=== PATIENT | male | born 1980 | race Caucasian/White ===

== ENCOUNTER 2016-09-07 10:13 | Emergency (ER) | payer OTHER ==
[2016-09-07 10:21] VITALS: TEMP 98.2; BMI 44.3
[2016-09-07] MEDS ORDERED: SODIUM CHLORIDE 1,000 ML IV STA ×2 (11:14→13:21)
--- NOTE | 2016-09-07 11:39 | PDOC ---
History of Present Illness - General History Source: Patient Exam Limitations: No Limitations - History of Present Illness Initial Comments: 09/07/16 11:38 The patient is a 35-year-old man with a significant past medical history of hypertension, hypercholesterolemia, diabetes mellitus, GOUT, anxiety and sleep apnea who presents to the emergency department via walk-in for further evaluation of a possible hyperglycemia. Patient states that he has felt tingling on his bilateral hands with associated headaches, urinary frequency and increased thirst for the past 2 days. He reports not checking his sugars at home, as his machine broke. He also reports getting over a cold recently- with symptoms of fevers, chills, nausea, vomiting and an episode of hematuria. He also reports having chest pain with shortness of breath and has not undergone a stress test due to scheduling difficulty. No fever, chills., generalized weakness, diaphoresis. No lightheadedness, dizziness, palpitations, loss of consciousness. No abdominal pain, nausea, vomiting, diarrhea. Allergies: No Known Drug Allergies Past Surgical History: Appendectomy Social History: Current every day smoker. Social EtOH use and no recreational drug use. Primary Care Physician: Dr. Sai Delgadillo <Viviana Eng - Last Filed: 09/07/16 14:22> - General History Source: Patient Exam Limitations: No Limitations <Yulia Martinez - Last Filed: 09/08/16 08:34> - General Chief Complaint: Pain Stated Complaint: DRY MOUTH, BLURRY VISION (DIABETIC) Time Seen by Provider: 09/07/16 11:13 Past History <Viviana Eng - Last Filed: 09/07/16 14:22> - Past Medical History Diabetes: Yes HTN: Yes Hypercholesterolemia: Yes Psychiatric Problems: Yes (ANXIETY.) Other medical history: SLEEP APNEA - Surgical History Abdominal Surgery: Yes Appendectomy: Yes - Psycho/Social/Smoking Cessation Hx Anxiety: Yes Suicidal Ideation: No Smoking History: Current every day smoker Number of Cigarettes Smoked Daily: 10 Information on smoking cessation initiated: No Hx Alcohol Use: Yes (SOCIAL) Drug/Substance Use Hx: No Substance Use Type: None <Yulia Martinez - Last Filed: 09/08/16 08:34> - Past Medical History Allergies/Adverse Reactions: Allergies Allergy/AdvReac Type Severity Reaction Status Date / Time No Known Allergies Allergy Verified 09/07/16 10:20 Home Medications: Ambulatory Orders Indomethacin 50 mg PO BID 11/19/14 Insulin (Levemir) [Levemir Flexpen -] 15 units SQ DAILY 11/19/14 Insulin Aspart [Novolog Flexpen] 12 unit SQ HS 11/19/14 Lisinopril [Prinivil] 20 mg PO DAILY 11/19/14 Metformin HCl [Glucophage] 500 mg PO BID 11/19/14 Miscellaneous Medical Supply [Glucometer Device] 1 each SQ ASDIR #1 kit Miscellaneous Medical Supply [Glucometer Test Strips #100] 1 each SQ ASDIR #1 box 09/07/16 Review of Systems - Review of Systems Able to Perform ROS?: Yes Comments:: 09/07/16 11:38 GENERAL/CONSTITUTIONAL: No: fever, chills, weakness, loss of appetite. HEAD, EYES, EARS, NOSE AND THROAT: No: change in vision, ear pain, discharge, sore throat, throat swelling. CARDIOVASCULAR: No: chest pain, lightheadedness, palpitations, syncope RESPIRATORY: No: cough, shortness of breath, wheezing, hemoptysis, stridor. GASTROINTESTINAL: No: nausea, vomiting, abdominal cramping, diarrhea, rectal bleeding, constipation. GENITOURINARY:Yes: Urinary Frequency. Episode of Hematuria (now resolved) No: dysuria, urgency, flank pain. MUSCULOSKELETAL: No: back pain, neck pain, joint pain, muscle swelling or pain SKIN AND BREASTS: No: lesions, pallor, rash or easy bruising. NEUROLOGIC: Yes: Headache. Tingling of both hands. No: vertigo, weakness ENDOCRINE: Yes: Increased thirst. No: unexplained weight gain or loss HEMATOLOGIC/LYMPHATIC: No: anemia, easy bleeding, swelling nodes <Viviana Eng - Last Filed: 09/07/16 14:22> *Physical Exam - Vital Signs Last Vital Signs Temp Pulse Resp BP Pulse Ox 98.2 F 112 H 20 124/69 96 09/07/16 10:17 09/07/16 10:17 09/07/16 10:17 09/07/16 10:09/07/16 10:17 - Physical Exam Comments: 09/07/16 11:38 GENERAL: Awake. Alert. The patient is in no acute distress. Obese. HEAD: Normal with no signs of trauma. EYES: PERRLA, EOMI, sclera anicteric, conjunctiva clear. ENT: Ears normal, nares patent, oropharynx clear without exudates. Dry mucous membranes. NECK: Normal range of motion, supple without lymphadenopathy, JVD, or masses. LUNGS: Breath sounds equal, clear to auscultation bilaterally. No wheezes, and no crackles. HEART:Regular rate and rhythm, normal S1 and S2 without murmur, rub or gallop. ABDOMEN: Soft, nontender, normoactive bowel sounds. No guarding, no rebound. EXTREMITIES: Normal range of motion, no edema. No clubbing or cyanosis. No erythema, or tenderness. NEUROLOGICAL: Cranial nerves II through XII grossly intact. Normal speech. No focal neurological deficits. MUSCULOSKELETAL: Back non-tender to palpation, no CVA tenderness SKIN: Warm, Dry, normal turgor, no rashes or lesions noted. <Viviana Eng - Last Filed: 09/07/16 14:22> - Vital Signs Last Vital Signs Temp Pulse Resp BP Pulse Ox 98.2 F 112 H 20 124/69 96 09/07/16 10:17 09/07/16 10:17 09/07/16 10:17 09/07/16 10:17 09/07/16 10:17 <Yulia Martinez - Last Filed: 09/08/16 08:34> Heart Score/ECG Review #1 ECG reviewed & interpreted by me at: 13:33 General ECG Interpretation: Sinus Rhythm, Normal Rate, Normal Intervals, No acute ischemic changes <Yulia Martinez - Last Filed: 09/08/16 08:34> ED Treatment Course - LABORATORY CBC & Chemistry Diagram: 09/07/16 12:40 09/07/16 12:35 <Viviana Eng - Last Filed: 09/07/16 14:22> - LABORATORY CBC & Chemistry Diagram: 09/07/16 12:40 09/07/16 12:35 <Yulia Martinez - Last Filed: 09/08/16 08:34> Medical Decision Making - Medical Decision Making 09/07/16 13:[address] Antonio Nj, who covers for patient's PCP, Dr. Sai Delgadillo here at the hospital. Immediate response. Case was discussed. 09/07/16 13:[address] Sai Aaron. <Viviana Eng - Last Filed: 09/07/16 14:22> - Medical Decision Making 09/07/16 11:38 A portion of this note was documented by scribe services under my direction. I have reviewed the details of the note, within reason, and agree with the documentation with the following case summary and management plan written by me. Nursing documentation reviewed and incorporated into medical decision making 09/07/16 13:31 Laboratory Tests 11/19/14 09/07/16 09/07/16 11:30 12:35 12:40 WBC 9.5 D Hgb 15.3 15.7 Hct 46.0 48.3 Plt Count 282 231 Sodium 128 L Potassium 4.5 Chloride 89 L D Carbon Dioxide 26 Anion Gap 13 BUN 15 D Creatinine 1.4 H D Random Glucose 801 H* D Awaiting trop Case reviewed with Dr. Nj Requests ICU Call placed to Dr Aaron Awaiting his review of this patient Will given NS Will give INsulin Will repeat Finger Stick Pt given a total of 3 L NS and Insulin Blood glucose improved pt states he can not stay in the hospital (I have already admitted him) He states that he is a single father and can not leave his son He will have to leave AMA I will order a glucometer for him (as his glucometer is broken) pt asked to return to the ER for any other concerns or complaints Clinical impression: Hyperglycemia, dehydration, Note: The patient insists on leaving the emergency dept and is signing out against medical advice. The patient understands the risks and complications that may result from the refusal of medical care and admission which includes and permanent disability. The patient has the mental capacity of understanding the risks of refusing care and is capable of making an informed decision. The patient was instructed to return to the emergency department should he change his mind regarding medical care or should his condition worsen. The patient signed the Against Medical Advice form. 09/08/16 08:27 <Yulia Martinez - Last Filed: 09/08/16 08:34> *DC/Admit/Observation/Transfer - Attestations Scribe Attestion: 09/07/16 11:38 Documentation prepared by Viviana Eng, acting as biomedical field service engineer for Yulia Martinez MD. <Viviana Eng - Last Filed: 09/07/16 14:22> - Discharge Dispostion Admit: No <Yulia Martinez - Last Filed: 09/08/16 08:34> Diagnosis at time of Disposition: Hyperglycemia - Discharge Dispostion Disposition: AGAINST MEDICAL ADVICE Condition at time of disposition: Stable - Prescriptions Prescriptions: Miscellaneous Medical Supply [Glucometer Device] 1 each SQ ASDIR #1 kit Miscellaneous Medical Supply [Glucometer Test Strips #100] 1 each SQ ASDIR #1 box - Referrals Referrals: Sai Delgadillo [Primary Care Provider] - - Patient Instructions Printed Discharge Instructions: DI for Hyperglycemia -- Adult, DI for Dehydration -- Adult Additional Instructions: Thank you for coming in to the ER today Please get your glucometer today Please check your fingerstick Please return to the ER for any other concerns or complaints Please follow up with your Primary Care physician You should also follow up with the Ticket Dispenser Changer
[2016-09-07 12:55] LABS: BASOPHIL 0.9 % (0-2.0); EOSINOPHIL 5.2 % (0-4.5); MCH 29.9 pg (25.7-33.7); MCHC 32.5 g/dl (32.0-35.9); MEAN CELL VOLUME 91.9 fl (80-96); MEAN PLT VOLUME 11.3 fl (7.5-11.1); NEUTROPHILS 59.2 % (42.8-82.8); PLATELET COUNT 231 K/MM3 (134-434); WHITE BLOOD COUNT 9.5 K/mm3 (4.0-10.0)
[2016-09-07 13:13] LABS: ANION GAP 13 (8-16); BILIRUBIN,TOTAL 0.5 mg/dL (0.2-1.0); CALCIUM 9.5 mg/dL (8.5-10.1); CO2 26 mmol/L (21-32); COCKROFT - GAULT 140.39; CREATININE 1.4 mg/dL (0.7-1.3); SGOT/AST 9 U/L (15-37); SGPT/ALT 32 U/L (12-78); TOT PROT 7.6 g/dl (6.4-8.2)
[2016-09-07 13:14] LABS: ALK PHOS 76 U/L (45-117)
[2016-09-07 13:21] LABS: GLUCOSE,RANDOM 801 mg/dL (74-106)
[2016-09-07] MEDS ORDERED: INSULIN REGULAR HUMAN 100 UNITS/ML *VIAL IVPUSH ONE (13:21)
[2016-09-07 13:22] LABS: TROPONIN I < 0.02 ng/ml (0.00-0.05)
[2016-09-07] MEDS ORDERED: INSULIN REGULAR HUMAN 100 UNITS/ML *VIAL ONE (13:29)
[2016-09-07 13:52] LABS: ACETONE SERUM NEGATIVE (NEGATIVE)
[2016-09-07 14:29] LABS: URINE APPEARANCE CLEAR; URINE BILIRUBIN NEGATIVE (NEGATIVE); URINE BLOOD NEGATIVE (NEGATIVE); URINE COLOR COLORLESS; URINE GLUCOSE (UA) 3+ (NEGATIVE); URINE KETONE NEGATIVE (NEGATIVE); URINE LEUK ESTERASE NEGATIVE (NEGATIVE); URINE NITRITE NEGATIVE (NEGATIVE); URINE PROTEIN NEGATIVE (NEGATIVE); URINE UROBILINOGEN NEGATIVE E.U./dl (0.2-1.0)
--- NOTE | 2016-09-07 14:41 | EKG ---
Test Reason : Blood Pressure : / mmHG Vent. Rate : 096 BPM Atrial Rate : 096 BPM P-R Int : 144 ms QRS Dur : 088 ms QT Int : 356 ms P-R-T Axes : 038 009 016 degrees QTc Int : 449 ms NORMAL SINUS RHYTHM NORMAL ECG NO PREVIOUS ECGS AVAILABLE Confirmed by SHER BENTON, RADHA ([id number]) on 09/07/2016 2:41:23 PM Referred By: Confirmed By:RADHA OLIVAREZ MD
[2016-09-07 15:45] VITALS: BP 123/92; PULSE 97
== END 2016-09-07 15:35 | disposition left against medical advice (07) ==
LOC: JER 10:13
PROC: 3E0337Z Introduction of Electrolytic and Water Balance Substance into Peripheral Vein, Percutaneous Approach (ICD-10-PCS; principal; 2016-09-07)
PROC: 3E033VG Introduction of Insulin into Peripheral Vein, Percutaneous Approach (ICD-10-PCS; 2016-09-07)
DX: E10.65 Type 1 diabetes mellitus with hyperglycemia (principal); Z79.4 Long term (current) use of insulin; Z79.84 Long term (current) use of oral hypoglycemic drugs; I10 Essential (primary) hypertension; E78.00 Pure hypercholesterolemia, unspecified; G47.39 Other sleep apnea; M10.9 Gout, unspecified; F41.9 Anxiety disorder, unspecified
CPT/HCPCS: 36415; 80053; 81003; 82009; 82550; 83036; 84484; 85025; 87086; 93005; 93010; 96361; 96374; 99283-25

== ENCOUNTER 2021-01-23 09:04 | Emergency (ER) | payer OTHER ==
[2021-01-23 09:11] VITALS: BP 126/62; PULSE 105; TEMP 97.4; BMI 41.3
== END 2021-01-23 10:31 | disposition home or self-care (01) ==
LOC: JER 09:04
PROC: 0H9AXZZ Drainage of Inguinal Skin, External Approach (ICD-10-PCS; principal; 2021-01-23)
DX: L02.214 Cutaneous abscess of groin (principal)
CPT/HCPCS: 99282-25